=== PATIENT | male | born 1975 | race African-American/Black ===

== ENCOUNTER 2019-02-21 10:01 | Emergency (ER) | payer SELFPAY ==
[2019-02-21] MEDS ORDERED: Adacel (T-DAP) 0.5 ML SYRINGE ONE (10:30)
[2019-02-21] MEDS ORDERED: Sodium Chloride 0.9% 100 ML ONE (10:43)
[2019-02-21] MEDS ORDERED: cefTRIAXone\\ROCEPHIN 2 GM VIAL ONE (10:43)
== END 2019-02-21 10:45 | disposition home or self-care (01) ==
LOC: NAV ERS 10:01
DX: L03.011 Cellulitis of right finger (principal); I10 Essential (primary) hypertension; F17.210 Nicotine dependence, cigarettes, uncomplicated; Z23 Encounter for immunization
CPT/HCPCS: 10060; 90471; 90715; J0696; J1642; J3490

== ENCOUNTER 2019-11-04 10:22 | Emergency (ER) | payer OTHER, SELFPAY | END 2019-11-04 11:00 | disposition home or self-care (01) | LOC: NAV ERS 10:22 | DX: L03.116 Cellulitis of left lower limb (principal); I10 Essential (primary) hypertension; F17.210 Nicotine dependence, cigarettes, uncomplicated | CPT/HCPCS: 99283 ==

== ENCOUNTER 2020-01-02 09:26 | Emergency (ER) | payer OTHER ==
[2020-01-03 20:29] LABS: SARS-CoV-2 MS2 Positive; SARS-CoV-2 N Gene Positive; SARS-CoV-2 S Gene Positive; SARS-CoV-2 by NAA DETECTED (NotDetected); SARS-CoV-2 orf1ab Positive
== END 2020-01-02 10:57 | disposition home or self-care (01) ==
LOC: NAV ERS 09:26
DX: U07.1 COVID-19 (principal); F17.210 Nicotine dependence, cigarettes, uncomplicated
CPT/HCPCS: 87635; 99283; U0003

== ENCOUNTER 2020-12-01 11:26 | Emergency (ER) | payer OTHER, SELFPAY ==
[2020-12-01 23:40] LABS: SARS-CoV-2 PCR by NAA Not Detected (NotDetected)
== END 2020-12-01 12:17 | disposition home or self-care (01) ==
LOC: NAV ERS 11:26
DX: J06.9 Acute upper respiratory infection, unspecified (principal); Z20.822 Contact with and (suspected) exposure to COVID-19; I10 Essential (primary) hypertension; F17.210 Nicotine dependence, cigarettes, uncomplicated
CPT/HCPCS: 99283; U0003; U0005

== ENCOUNTER 2021-03-13 15:20 | Emergency (ER) | payer SELFPAY | END 2021-03-13 16:11 | disposition home or self-care (01) | LOC: NAV ERS 15:20 | DX: J06.9 Acute upper respiratory infection, unspecified (principal); I10 Essential (primary) hypertension; F17.210 Nicotine dependence, cigarettes, uncomplicated; Z20.822 Contact with and (suspected) exposure to COVID-19 | CPT/HCPCS: 99283 ==

== ENCOUNTER 2021-05-27 08:15 | Emergency (ER) | payer BC, OTHER, SELFPAY | END 2021-05-27 08:51 | disposition home or self-care (01) | LOC: NAV ERS 08:15 | DX: J11.1 Influenza due to unidentified influenza virus with other respiratory manifestations (principal); I10 Essential (primary) hypertension; F17.210 Nicotine dependence, cigarettes, uncomplicated | CPT/HCPCS: 99282 ==

== ENCOUNTER 2021-06-25 13:12 | Emergency (ER) | payer BC, SELFPAY ==
[2021-06-25] MEDS ORDERED: Sodium Chloride 0.9% 1,000 ML ONE ×2 (13:47→14:28)
[2021-06-25 13:56] LABS: #Basophils 0.3 thou/uL (0.0-0.2); #Eosinphils 0.3 thou/uL (0.0-0.7); #Lymphocytes 5.5 thou/uL (1.20-3.40); #Monocytes 0.8 thou/uL (0.11-0.59); #Neutrophils 5.6 thou/uL (1.40-6.50); %Basophils 2.4 % (0.0-1.0); %Eosinophils 2.1 % (0.0-10.0); %Lymphocytes 44.4 % (21.0-51.0); %Monocytes 6.1 % (0.0-10.0); %Neutrophils 44.9 % (42.0-75.0); Hemoglobin 13.7 g/dL (14.0-18.0); Mean Corpuscular HGB CONC 30.2 g/dL (32.0-36.0); Mean Corpuscular Hemoglobin 27.4 pg (27.0-31.0); Mean Corpuscular Volume 90.8 fL (78.0-98.0); Mean Platelet Volume 8.3 fL (7.4-10.4); Platelet Count 305 thou/uL (130-400); RBC Distribution Width 12.5 % (11.5-14.5); White Blood Cell (WBC) Count 12.4 thou/uL (4.8-10.8)
[2021-06-25 14:13] LABS: ALT (SGPT) 22 U/L (8-55); AST (SGOT) 15 U/L (5-34); Albumin 4.2 g/dL (3.5-5.0); Alkaline Phosphatase 66 U/L (40-110); Anion Gap 18 mmol/L (10-20); BUN (Urea Nitrogen) 12 mg/dL (8.9-20.6); Bilirubin, Total 0.4 mg/dL (0.2-1.2); Calc. Creatinine Clearance 0 mL/min (70-130); Calcium 9.1 mg/dL (7.8-10.44); Carbon Dioxide 23 mmol/L (22-29); Chloride 102 mmol/L (98-107); Globulin 2.4 g/dL (2.4-3.5); Glucose 132 mg/dL (70-105); Lipase 29 U/L (8-78); Magnesium 2.2 mg/dL (1.6-2.6); Potassium 3.5 mmol/L (3.5-5.1); Protein, Total 6.6 g/dL (6.0-8.3); Sodium 139 mmol/L (136-145)
== END 2021-06-25 15:35 | disposition home or self-care (01) ==
LOC: NAV ERS 13:12
DX: R55 Syncope and collapse (principal); I10 Essential (primary) hypertension
CPT/HCPCS: 71045; 80053; 83690; 83735; 84484; 85025; 93005; 94760; J7050

== ENCOUNTER 2022-04-10 13:52 | Emergency (ER) | payer BC | END 2022-04-10 14:45 | disposition home or self-care (01) | LOC: NAV ERS 13:52 | DX: B34.9 Viral infection, unspecified (principal); I10 Essential (primary) hypertension; Z87.891 Personal history of nicotine dependence | CPT/HCPCS: 99283 ==

== ENCOUNTER 2022-10-08 19:06 | Emergency (ER) | payer BC | END 2022-10-08 19:49 | disposition home or self-care (01) | LOC: NAV ERS 19:06 | DX: B34.9 Viral infection, unspecified (principal); J02.8 Acute pharyngitis due to other specified organisms; I10 Essential (primary) hypertension; F17.210 Nicotine dependence, cigarettes, uncomplicated | CPT/HCPCS: 87081; 87430; 99283 ==

== ENCOUNTER 2023-04-12 13:44 | Emergency (ER) | payer BC ==
[2023-04-12 15:35] LABS: SARS-CoV-2 NAA Rapid Test Not Detected (NotDetected)
== END 2023-04-12 14:31 | disposition home or self-care (01) ==
LOC: NAV ERS 13:44
DX: J10.1 Influenza due to other identified influenza virus with other respiratory manifestations (principal); I10 Essential (primary) hypertension; F17.210 Nicotine dependence, cigarettes, uncomplicated
CPT/HCPCS: 99283